=== PATIENT | female | born 1980 | race Caucasian/White ===

== ENCOUNTER 2020-01-16 05:50 | Inpatient (IN) | payer OTHER, SELFPAY ==
[~2020-01-16] VITALS: Ht 157.5 cm; Wt 81.6 kg
[2020-01-16] MEDS ORDERED: LR 1,000 ML IV ONE (06:17)
[2020-01-16 06:26] VITALS: BP_SYST 103
[2020-01-16] MEDS ORDERED: CEFAZOLIN 2 GM IVPB PREMIX 50 ML IV ONE (07:00)
[2020-01-16 07:15] LABS: BASOPHILS % (AUTO) 0.7 % (0.0-2.0); EOSINOPHILS % (AUTO) 0.6 % (0.0-4.0); HEMATOCRIT 32.4 % (36-48); HEMOGLOBIN 10.8 g/dL (12.0-16.0); LYMPHOCYTES # (AUTO) 1.6 K/uL (1.0-5.5); LYMPHOCYTES % (AUTO) 27.4 % (20.5-51.5); MEAN CORPUSCULAR HEMOGLOBIN 27 pg (27-31); MEAN CORPUSCULAR HGB CONC 33 % (32-36); MEAN CORPUSCULAR VOLUME 81 fL (79.0-98.0); MONOCYTES # (AUTO) 0.4 K/uL (0.0-1.0); MONOCYTES % (AUTO) 6.5 % (1.7-9.3); NEUTROPHILS # (AUTO) 3.9 K/uL (1.8-7.7); NEUTROPHILS % (AUTO) 64.8 % (40.0-70.0); PLATELET COUNT (AUTO) 185 K/uL (130-430); RED CELL DISTRIBUTION WIDTH 15.4 % (9.0-15.0)
[2020-01-16 07:35] LABS: BILIRUBIN,URINE NEGATIVE (NEGATIVE); BLOOD, URINE 2+ (NEGATIVE); CLARITY/URINE SL CLOUDY (CLEAR); COLOR,URINE YELLOW (YELLOW); GLUCOSE,URINE NEGATIVE (NEGATIVE); KETONES,URINE NEGATIVE (NEGATIVE); LEUKOCYTE ESTERASE ,URINE NEGATIVE (NEGATIVE); NITRITE, URINE NEGATIVE (NEGATIVE); PROTEIN URINE TRACE (NEGATIVE); UROBILINOGEN,URINE 0.2 (0.2-1.0)
[2020-01-16] MEDS ORDERED: CEFAZOLIN 1 GM IVPB PREMIX 50 ML IV ONE (07:46)
[2020-01-16] MEDS ORDERED: OXYTOCIN/0.9 % SODIUM CHLORIDE 20 UNITS/1,000 ML BAG IV ONE (07:46)
[2020-01-16] MEDS ORDERED: LR 1,000 ML IV.SOLN IV ONE (07:46)
[2020-01-16] MEDS ORDERED: NS IRRIG SOLN 1000 ML IR ONE (07:46)
[2020-01-16] MEDS ORDERED: METOCLOPRAMIDE HCL 10 MG/2 ML VIAL IVP ONE (07:46)
[2020-01-16] MEDS ORDERED: MORPHINE SULFATE 10MG/10ML PF AMP EP ONE (07:46)
[2020-01-16] MEDS ORDERED: PHENYLEPHRINE HCL 10 MG/ML VIAL (NEOSYNEPHRINE) IV ONE (07:46)
[2020-01-16] MEDS ORDERED: ONDANSETRON HCL 4 MG/2 ML VIAL IVP ONE (07:46)
[2020-01-16] MEDS ORDERED: ePHEDrine sulfate 50 MG/ML VIAL IVP ONE (07:46)
[2020-01-16] MEDS ORDERED: KETOROLAC TROMETHAMINE 30 MG VIAL IVP ONE (07:46)
[2020-01-16 08:00] LABS: BACTERIA,URINE None Seen /HPF (None Seen)
[2020-01-16 08:01] LABS: YEAST,URINE None Seen /HPF (None Seen)
[2020-01-16 08:42] VITALS: BP_SYST 95
[2020-01-16] MEDS ORDERED: ANUSOL 1 EA SUPP.RECT (PREPARATION H) RC PRN (08:45)
[2020-01-16] MEDS ORDERED: MEASLES,MUMPS&RUBELLA VACC/PF 12500 UNIT/0.5 ML VIAL SUBQ PRN (08:45)
[2020-01-16] MEDS ORDERED: BISACODYL 10 MG/SUPPOSITORY RC PRN (08:45)
[2020-01-16] MEDS ORDERED: DIPHENHYDRAMINE INJ 50 MG/ML VIAL IM PRN (08:45)
[2020-01-16] MEDS ORDERED: LR 1,000 ML IV SCH (08:45)
[2020-01-16] MEDS ORDERED: TEMAZEPAM 15 MG CAPSULE PO PRN (08:45)
[2020-01-16] MEDS ORDERED: ONDANSETRON HCL 4 MG/2 ML VIAL IVP PRN (08:45)
[2020-01-16] MEDS ORDERED: DIPH-TET-PERTUS Vaccine 0.5 ML VIAL (ADACEL) I.M. PRN (08:45)
[2020-01-16] MEDS ORDERED: NALOXONE HCL 0.4 MG/ML AMP (NARCAN) IVP PRN ×2 (08:45)
[2020-01-16] MEDS ORDERED: HYDROcodone/ACETAMIN 5-325 MG TAB (NORCO/ VICODIN) PO PRN (08:45)
[2020-01-16] MEDS ORDERED: SENNOSIDES/DOCUSATE SODIUM 1 TAB TABLET(SENOKOT-S) PO PRN (08:45)
[2020-01-16] MEDS ORDERED: KETOROLAC TROMETHAMINE 60 MG/2 ML VIAL IM PRN (08:45)
[2020-01-16] MEDS ORDERED: RHO(D) IMMUNE GLOBULIN/MALTOSE 1500 UNITS/1.3 ML (WINHRO) IM PRN (08:45)
[2020-01-16] MEDS ORDERED: MORPHINE SULFATE 10MG/10ML PF AMP SP SCH (08:45)
[2020-01-16] MEDS ORDERED: LANOLIN 7 GM OINT. TP PRN (08:45)
[2020-01-16] MEDS ORDERED: DIPHENHYDRAMINE INJ 50 MG/ML VIAL ONE (09:23)
[2020-01-16] MEDS ORDERED: DIPHENHYDRAMINE INJ 50 MG/ML VIAL IVP ONE (11:45)
[2020-01-16] MEDS: OXYTOCIN/0.9 % SODIUM CHLORIDE 1,000 ML IV SCH ×2 (12:18→21:29)
[2020-01-16] MEDS: KETOROLAC TROMETHAMINE 30 MG VIAL IVP SCH (18:01)
[2020-01-16] MEDS: CEFAZOLIN 1 GM IVPB PREMIX 50 ML IV SCH ×2 (18:01)
[2020-01-17] MEDS: CEFAZOLIN 1 GM IVPB PREMIX 50 ML IV SCH (06:00)
[2020-01-17 06:34] LABS: HEPATITIS B SURFACE AG Negative (Negative)
[2020-01-17] MEDS: KETOROLAC TROMETHAMINE 30 MG VIAL IVP SCH ×3 (06:58→12:16)
[2020-01-17] MEDS: SIMETHICONE 80 MG TAB.CHEW PO PRN ×2 (06:59→20:47)
[2020-01-17] MEDS: DOCUSATE SODIUM 100 MG CAPSULE PO PRN ×2 (06:59→20:23)
[2020-01-17 08:12] LABS: BASOPHILS % (AUTO) 0.4 % (0.0-2.0); EOSINOPHILS # (AUTO) 0.1 K/uL (0.0-0.4); HEMATOCRIT 31.3 % (36-48); HEMOGLOBIN 10.3 g/dL (12.0-16.0); LYMPHOCYTES # (AUTO) 1.3 K/uL (1.0-5.5); LYMPHOCYTES % (AUTO) 20.3 % (20.5-51.5); MEAN CORPUSCULAR HEMOGLOBIN 27 pg (27-31); MEAN CORPUSCULAR HGB CONC 33 % (32-36); MEAN CORPUSCULAR VOLUME 82 fL (79.0-98.0); MONOCYTES # (AUTO) 0.5 K/uL (0.0-1.0); NEUTROPHILS # (AUTO) 4.4 K/uL (1.8-7.7); NEUTROPHILS % (AUTO) 70.3 % (40.0-70.0); PLATELET COUNT (AUTO) 163 K/uL (130-430); RED BLOOD CELL COUNT(AUTO) 3.82 MIL/uL (4.2-6.2); RED CELL DISTRIBUTION WIDTH 15.2 % (9.0-15.0); WHITE BLOOD COUNT (AUTO) 6.3 K/uL (4.8-10.8)
[2020-01-17] MEDS: OXYCODONE/ACETAMINOPHEN *10*mg/325 mg TABLET PO PRN ×2 (16:17→20:25)
[2020-01-17] MEDS: IBUPROFEN 600 MG TABLET PO SCH (17:51)
[2020-01-18] MEDS: OXYCODONE/ACETAMINOPHEN *10*mg/325 mg TABLET PO PRN ×5 (00:08→21:16)
[2020-01-18] MEDS: IBUPROFEN 600 MG TABLET PO SCH ×3 (00:10→11:36)
[2020-01-18] MEDS: DOCUSATE SODIUM 100 MG CAPSULE PO PRN ×2 (06:32→14:24)
[2020-01-18] MEDS: SIMETHICONE 80 MG TAB.CHEW PO PRN ×2 (06:33→21:16)
[2020-01-18] MEDS ORDERED: WITCH HAZEL LEAF 1 MED.PAD MED.PAD TP PRN (23:00)
[2020-01-18] MEDS ORDERED: PHENYLEPH/MINERAL OIL/PETROLAT 45 GM OINT.APPL TP PRN (23:00)
[2020-01-19] MEDS: IBUPROFEN 600 MG TABLET PO SCH ×4 (00:03→17:56)
[2020-01-19] MEDS: OXYCODONE/ACETAMINOPHEN *10*mg/325 mg TABLET PO PRN ×3 (01:02→19:14)
[2020-01-19] MEDS: OXYCODONE/ACETAMINOPHEN 5-325 TABLET PO PRN ×2 (11:15→15:46)
[2020-01-19] MEDS: SIMETHICONE 80 MG TAB.CHEW PO PRN (11:15)
[2020-01-19 19:11] LABS: FTA-Ab (T PALLIDUM) Non Reactive (Non Reactive)
== END 2020-01-19 20:30 | disposition home or self-care (01) | DRG 785 ==
LOC: SPU 05:50
PROVIDERS: ADMIT Specialist; ATTEND Specialist
PROC: 0UL70CZ Occlusion of Bilateral Fallopian Tubes with Extraluminal Device, Open Approach (ICD-10-PCS; 2020-01-16)
PROC: 10D00Z1 Extraction of Products of Conception, Low, Open Approach (ICD-10-PCS; principal; 2020-01-16 07:46)
DX: O34.211 Maternal care for low transverse scar from previous cesarean delivery (principal); O99.52 Diseases of the respiratory system complicating childbirth; J45.909 Unspecified asthma, uncomplicated; Z30.2 Encounter for sterilization; Z37.0 Single live birth; Z3A.39 39 weeks gestation of pregnancy
CPT/HCPCS: 36415; 81000-TC; 85025; 86592; 86780; 86886; 86900; 86901; 87340; 87536; J0690; J1200; J1885; J2274; J2370; J2405; J2590; J2765; J7120; U0003-CS